=== PATIENT | female | born 1975 | race Caucasian/White ===

== ENCOUNTER → 2018-08-18 | Outpatient (CLI) | payer OTHER ==
[~2018-08-18] VITALS: Ht 152.4 cm; Wt 92.5 kg
[~2018-08-18] MED LIST: AMBIEN 5 MG TABL5 M1 PO; CRESTOR10 MG PO; METOPROLOL TART25 MG PO; MOBIC15 MG PO; NEURONTIN 300300 M1 PO; PROTONIX40 M1 PO; REQUIP 1 MG TABL1 M1 PO; SYNTHROID150 MCG PO
--- NOTE | ~2018-08-18 | HPC ---
[facility] [address] [place] [address] PAIN MANAGEMENT CONSULTATION Name: STEFANO JULIEN [id number] Admission: 08/18/18 Attend Phys: Henry Lea DO Discharge: Date of : 71 Report #: [id number] THIS REPORT FOR: //name// CC: Henry Burroughs DATE OF SERVICE: 08/18/2018 CHIEF COMPLAINT: Low back pain, left buttock pain, bilateral calf and anterior thigh pain. HISTORY OF PRESENT ILLNESS: As you know, the patient is a 43-year-old morbidly obese female who reports pain that began in 2017. She denies injury or trauma that may have led to symptom development. She indicates pain begins in the low back, left buttock area, then skips entire leg until the anterior tibial area and the gastrocnemius area bilaterally in a stocking distribution presenting as paresthesias. The patient states that this has been present for years. Apparently pain became intolerable to the point where the patient sought further evaluation with her PCP. Primary care has run some labs, which show no specific concerning findings that might indicate rheumatologic issues. She has trialled conservative medical therapy receiving treatment via the primary care team without improvement. She was subsequently referred to our service requesting the possibility of undergoing an epidural injection for suspected lumbar radiculopathy. The patient indicates pain today is continuous and constant, describes the pain as burning, aching, throbbing and stabbing, places current pain score 4/10, daily average at 8/10, worst pain has been is 10/10. The patient states the pain is exacerbated with "sitting." The patient indicates pain is improved with nothing to date except for possibly hot baths, lying down, ibuprofen therapy, which might make it more tolerable. She has been referred to our service to discuss treatment options. It is noted the patient's labs are only positive for TSH elevated, which is typical for hypothyroidism. The patient's cholesterol is elevated, BUN mildly elevated and CRP elevated to 1.1 with a normal of 0.9. PAST MEDICAL HISTORY: 1. Hypothyroidism. 2. GERD. 3. Bilateral restless legs syndrome. 4. Hypertension. PAST SURGICAL HISTORY: 1. Cholecystectomy. 2. Partial hysterectomy. [facility] [address] [place] [address] PAIN MANAGEMENT CONSULTATION Name: STEFANO JULIEN Room #: REG [facility].#: [id number] Admission: 08/18/18 Attend Phys: Henry Lea DO Discharge: Date of : 71 Report #: [id number] SOCIAL HISTORY: The patient denies tobacco, IV or illicit drug use. Admits to two alcoholic beverages per week. She is currently employed as a registered nurse. She is working, not receiving workmen's compensation nor is she trying to obtain disability benefits. She is not in litigation in regards to pain. She is unaccompanied at today's visit. REVIEW OF SYSTEMS: Positive for weight gain, night sweats, fatigue and weakness, frequent and recurrent headaches, wearing corrective eyewear, chronic sinus problems with rhinitis, nose bleeds, shortness of breath walking or lying flat, heart trouble, chest pain, palpitations, nocturia, rash and itching, numbness and tingling sensations bilaterally in the lower extremities, insomnia and thyroid disease. All other review of systems negative per 12-point review of systems other than those listed in the history of present illness. Pain impact score 35/70 indicating moderate interference of daily activities secondary to pain. ALLERGIES: SULFA. CURRENT MEDICATIONS: Meloxicam 15 mg once a day, zolpidem 5 mg p.o. at bedtime, lovastatin 10 mg once a day, metoprolol 25 mg every 12 hours, Requip 1 mg p.o. at bedtime, Protonix 40 mg per day and levothyroxine 150 mcg per day. IMAGING: MRI of lumbar spine obtained on 07/16/2018 shows L1-L2, L2-L3 and L3-L4 are unremarkable. L4-L5 shows grade 1 anterolisthesis of L4 on L5, mild to moderate degenerative changes typical for an anterolisthesis. There is moderate facet arthropathy on the right, mild arthropathy on left, mild broad-based disk bulge with moderate right paracentral disk bulge, no spinal stenosis, moderate narrowing of the left lateral recess and mild narrowing of the ____ lateral recess. There is mild right L4 neural foraminal narrowing without nerve root compression. L5-S1 mild degenerative changes, mild central disk protrusion, no central canal neural foraminal stenosis. PHYSICAL EXAMINATION: VITAL SIGNS: Blood pressure 152/93, pulse is 80, respiratory rate 16 and unlabored, the patient is 97% on room air. Height 5 feet tall, weight 204 pounds, BMI calculated 39.8. GENERAL: Well-developed, well-nourished, well-hydrated, morbidly obese 43-year-old female appearing stated age, placing pain score today 4/10. HEENT: Normocephalic and atraumatic. Pupils are equal, round and reactive to light. Extraocular muscles are intact. Sclerae are nonicteric without injection. NEUROLOGIC: Cranial nerves 2-12 are grossly intact. Speech is fluent. The patient deemed a good historian. LUNGS: Clear, no wheeze, rhonchi or rales. CARDIOVASCULAR: Regular. No appreciable gallop or rub. ABDOMEN: Soft, nontender and obese. Normoactive bowel sounds. [facility] [address] [place] [address] PAIN MANAGEMENT CONSULTATION Name: STEFANO JULIEN Room #: REG [facility].#: [id number] Admission: 08/18/18 Attend Phys: Henry Lea DO Discharge: Date of : 71 Report #: [id number] EXTREMITIES: Show no clubbing, no cyanosis and no edema. MUSCULOSKELETAL: Lower extremity strength appears equal and symmetrical 5/5. She is intact to light touch from L1 through S2 dermatomes. Seated straight leg raising is negative. Supine straight leg raising is negative. Armaan's test is negative. Modified Gaenslen's positive for axial low back pain. Ankle clonus is negative. Babinski is negative. Gait appears normal. Stance is normal. ASSESSMENT: 1. Chronic low back pain. 2. 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 3. Bilateral lower extremity neuropathic pain. 4. Chronic intractable pain. PLAN: 1. The patient has been referred to our service for evaluation for suspected lumbar radiculopathy. I am pleased to advise the patient today, no radicular symptoms are noted. The findings of her MRI if these were causing symptoms would be related specifically to the right side and no left side involvement. In fact pain distribution that the patient is experiencing appears to be more related to facet arthropathy and possibly a little SI joint dysfunction both of which I recommend to treat conservatively. The symptoms the patient is experiencing in the bilateral lower extremities appear to be a peripheral neuropathy. The distribution of the symptoms are in a stocking distribution and are nondermatomal. They involve both the anterior and posterior lower extremity and noted bilaterally. I believe further evaluation from either vascular studies or an EMG would be appropriate in this case. The findings of physical exam would indicate more of a facet arthropathy and SI joint discomfort involving the left buttock area and recommend treatment as indicated above is more conservative. Certainly treatment can be addressed for the bilateral lower extremity symptoms treating neuropathy with a neuropathic pain medication. Again, I am pleased to indicate to the patient today that the findings of her MRI do not appear to be related to the patient's distribution of pain. 2. I would recommend initiating gabapentin therapy in this patient's case. This will help her peripheral neuropathy that needs to be further worked up. We will start the patient on a 300 mg dose starting at 1 tab p.o. bedtime for 3 days, then 2 tabs p.o. at bedtime for 3 days, then 1 tab in the morning and 2 tabs at night for 3 days, then 2 tabs in the morning and 2 tabs at night for 3 days, then 2 tabs in the morning, 1 tab at noon and 2 tabs at night for 3 days, ultimately reaching 2 tabs p.o. b.i.d. The patient was advised anytime during this titration, she notes improvement in symptoms, no further escalation would be necessary. If side effects are reached including somnolence, decreased mental acuity, disorientation and confusion, she can reduce to the dose prior, contact our clinic for adjustments in her titration option. She was given a prescription of #180 tablets, no refills. 3. In regards to the patient's axial back pain and left buttock pain, this appears to be related to facet arthropathy noted at the L4-L5 and to a lesser [facility] [address] [place] [address] PAIN MANAGEMENT CONSULTATION Name: STEFANO JULIEN Room #: REG Brandan Shipley#: [id number] Admission: 08/18/18 Attend Phys: Henry Lea DO Discharge: Date of : 71 Report #: [id number] degree at the L5-S1 level. We could certainly look towards injections into this area. Other treatments would be physical therapy, stretching exercise, core strengthening and a concerted effort at weight loss, which will assist the patient's generalized pain disorder. We also discussed utilization of a nonsteroidal anti-inflammatory on a consistent basis. We also discussed intra-articular facet injections as indicated above and medial branch nerve blocks leading towards radiofrequency lesioning. These all can be considered. The patient at this time wishes to consider these options further. 4. I recommend strongly that the patient return to her PCP, have adjustments made for her thyroid issues. Apparently, she is having difficulty with thyroid control. She does note worsening of her bilateral lower extremity peripheral neuropathies with changes in her thyroid treatment. This would indicate the thyroid symptomology may be the source of her bilateral nondermatomal pain distribution. I will defer to the primary team for further evaluation and possible referrals to either Neurology for EMG testing of the lower extremities or possibly even further testing with vascular studies to confirm no peripheral vascular issues. 5. We spent 24 minutes of time today reviewing the patient's MRI imaging and trying to correlate the imaging findings to the patient's distribution. I am pleased to indicate at this time the findings that are present would be more indicative of affecting the right side with no left side involvement. This is the opposite side of the patient's pain and thus indicating that the findings of the MRI are not consistent with pain distribution and do not appear to be contributing to the patient's symptomology except for the facet arthropathy pain on the left side, which may be contributing to her left buttock and posterior buttock distribution. After this long discussion, we discussed the treatment options as indicated above, the patient wished to consider those options further. 6. We wish to thank Dr. Burroughs for the referral of the patient to our clinic. We will keep you apprised of response to treatment as we address her ongoing pain issues. Once we have stabilized her on a dose of appropriate medication, we will be returning her care to your capable services to continue that treatment course. Again we wish to thank you for the opportunity to see the patient in consultation. By: [phone] Henry Lea DO /fahad
[2018-08-18 14:21] VITALS: BP 152/93
--- NOTE | 2018-08-18 14:23 | NUR ---
Pain Clinic Assessment: 1. History of Osteoarthritis: Not Applicable History of Rheumatoid Arthritis: Not Applicable 2. Height: 5 ft. 0 in. 152.4 cm. Weight: 204.0 lb. oz. 92.534 kg. Patient's BMI: 39.8 3. Vital Signs: BP: 152/93 Pulse: 80 Resp: 16 Temp: 02 Sat: 97 ECG Mon: 4. Pain Intensity: 4 5. Fall Risk: Dizziness: N Needs help standing or walking: N Fallen in the last 3 months: N Fall risk comments: 6. Patient on Blood Thinner: None 7. History of Hypertension: Y 8. Opioid Therapy greater than 6 weeks: N Opiate Contract Signed: 9. Risk Assessment Tool Provided: 10. Functional Assessment Tool: 11. Recreational Drug Use: Never Drug Type: Tobacco Use: Never Smoker Tobacco Type: Amount or Packs/day: How Many Years: Alcohol Use: Yes Frequency: Weekly Quant: 1-2
== END ==
LOC: PAIN 06:57
DX: M54.5 Low back pain (principal); M79.605 Pain in left leg; M79.604 Pain in right leg; G89.29 Other chronic pain; F17.200 Nicotine dependence, unspecified, uncomplicated; Z72.89 Other problems related to lifestyle; Z79.899 Other long term (current) drug therapy

== ENCOUNTER → 2019-08-10 | Outpatient (CLI) | payer OTHER ==
[~2019-08-10] VITALS: Ht 152.4 cm; Wt 95.1 kg
[~2019-08-10] MED LIST changes: +CYMBALTA60 MG PO; +NEURONTIN300 MG PO; +ZANAFLEX4 M2 PO
[2019-08-10 10:21] VITALS: BP 141/93
--- NOTE | 2019-08-10 10:35 | NUR ---
Pain Clinic Assessment: 1. History of Osteoarthritis: DENIES History of Rheumatoid Arthritis: DENIES 2. Height: 5 ft. 0 in. 152.4 cm. Weight: 209.6 lb. oz. 95.074 kg. Patient's BMI: 40.9 3. Vital Signs: BP: 141/93 Pulse: 81 Resp: 16 Temp: 02 Sat: 99 ECG Mon: 4. Pain Intensity: 4 5. Fall Risk: Dizziness: N Needs help standing or walking: N Fallen in the last 3 months: N Fall risk comments: 6. Patient on Blood Thinner: None 7. History of Hypertension: Y 8. Opioid Therapy greater than 6 weeks: N Opiate Contract Signed: 9. Risk Assessment Tool Provided: 10. Functional Assessment Tool: 11. Recreational Drug Use: Never Drug Type: Tobacco Use: Never Smoker Tobacco Type: Amount or Packs/day: How Many Years: Alcohol Use: Yes Frequency: Special Occasions Quant:
--- NOTE | 2019-08-11 12:54 | HPC ---
[facility] [place] [address] [place] [address] PAIN MANAGEMENT CONSULTATION Name: STEFANO JULIEN [facility] [id number] Admission: 08/10/19 Attend Phys: Sophie Lea DO Discharge: Date of : 71 Report #: [id number] THIS REPORT FOR: //name// CC: SOPHIE Verdugo DATE OF SERVICE: 08/10/2019 REFERRING PHYSICIAN: Sophie Burroughs DO CHIEF COMPLAINT: Low back pain, bilateral lower extremity pain, left greater than right. HISTORY OF PRESENT ILLNESS: As you know, the patient is a 44-year-old female who was seen by our services on 08/18/2018, diagnosed with lumbar radiculopathy at that time, but chose to follow on more conservative treatment course. She has been lost to followup visit until today where she returns describing her pain is chronic in nature, burning, aching, numbness and tingling that is what she experiences on a daily basis, placing her current pain score 4/10. Pain is exacerbated with walking, standing, driving and sitting, improves with hot baths and lying down. The patient states she has sought evaluation through Neurosurgery, who has advised the patient that surgical options will likely be necessary at the L4-L5 level. She was referred back to our clinic by the neurosurgery team to trial an epidural injection under fluoroscopic guidance to determine if her symptoms would be amenable to a more conservative treatment approach. She returns today in followup visit stating pain level of around 4/10. She denies new injury or trauma that may have led to symptom reoccurrence. She does come to us today with imaging that was obtained on 06/24/2019, which showed changes at the L4-L5 level consistent with her symptoms. ALLERGIES: SULFA. CURRENT MEDICATIONS: Tizanidine, duloxetine, gabapentin, zolpidem, lovastatin, metoprolol, pantoprazole, levothyroxine. SOCIAL HISTORY: The patient denies tobacco, IV or illicit drug use. Admits to 2 alcohol beverages per week. She is employed as a registered nurse, working, not receiving workmen's compensation, unaccompanied today. IMAGING: MRI lumbar spine obtained on 06/24/2019 shows T12-L1, L1-L2, L2-L3, and L3-L4 shows no significant findings. L4-L5 shows uncovering of the posterior superior aspect of the disk with broad-based posterior disk bulge, again noted asymmetric prominence and superimposed shallow disk protrusion within the right subarticular zone extending the [place] [address] PAIN MANAGEMENT CONSULTATION Name: STEFANO JULIEN [facility] #: [facility] [id number] Admission: 08/10/19 Attend Phys: Sophie Lea DO Discharge: Date of : 71 Report #: [id number] Effacement of the exiting right L4 nerve root. There is moderate to severe medial right foraminal stenosis, mildly progressed from previous examination. Severe right and moderate left facet arthropathy. L5-S1 is essentially unremarkable. PHYSICAL EXAMINATION: VITAL SIGNS: Blood pressure 141/93, pulse 81, respiratory rate 16 and unlabored, the patient is 99% on room air. Height 5 feet tall, weight 209.6 pounds, BMI calculated 40.9. GENERAL: Well-developed, well-nourished, well-hydrated, class 3, morbidly obese 44-year-old female, appearing stated age, pain is rated today 4/10. HEENT: Normocephalic, atraumatic. Pupils equal, round, reactive to light. Extraocular muscles are intact. EXTREMITIES: Show no clubbing, no cyanosis, and no edema. MUSCULOSKELETAL: Lower extremity strength appears equal and symmetrical 5/5, intact to light touch from L1 through S2 dermatomes. Seated straight leg raising is negative. Supine straight leg raising is positive right. Armaan's test is negative. Modified Gaenslen's positive for axial low back pain. Ankle clonus is negative. Babinski is negative. ASSESSMENT: 1. Symptomatic lumbar radiculopathy. 2. Displacement of lumbar intervertebral disk with radiculopathy. 3. Lumbosacral spondylosis with radiculopathy. 4. Right foraminal stenosis. 5. Lumbar degeneration. 6. Chronic intractable pain. PLAN: 1. The patient has returned today in followup visit per the request of her neurosurgery team to undergo lumbar epidural injection under fluoroscopic guidance. The patient brings with her today imaging study from 06/24/2019 that reviewed with her today. I am pleased that the findings of the MRI are such that she only has one level issue and can be amenable to surgery, but we are hopeful she can see improvement in symptoms with an epidural injection for which the patient was referred to our clinic. We discussed the risks and benefits of a lumbar epidural injection. These risks include but are not necessarily limited to bleeding, bruising, infection, worsening pain, no relief of pain, also risk of temporary or permanent muscle weakness, temporary or permanent nerve damage, possible paralysis, post-dural puncture headache and . The patient states understood and wished to proceed. 2. No medication changes made at today's visit. The patient will continue current medical therapy as prior prescribed. 3. We will see the patient back in followup visit on an as needed basis for the possible next in the series of lumbar epidural injections. [facility] [address] [place] [address] PAIN MANAGEMENT CONSULTATION Name: STEFANO JULIEN Room #: REG [facility]#: [id number] Admission: 08/10/19 Attend Phys: Sophie Lea DO Discharge: Date of : 71 Report #: [id number] PROCEDURE NOTE DESCRIPTION OF PROCEDURE: L5-S1 right parasagittal epidural steroid injection under fluoroscopic guidance. This is the first procedure of the first series that the patient is undergoing. After obtaining written consent, the patient was taken back to the fluoroscopy suite, placed in a prone position with pillow under the abdomen to decrease lumbar lordosis. The skin overlying the lumbosacral area was then prepped and draped in aseptic fashion. The L5-S1 vertebral interspace was then identified by AP fluoroscopy. The skin and subcutaneous tissue overlying the target site of injection was anesthetized with 3 mL 1% lidocaine. A 20-gauge 4.5 inch Tuohy needle was then advanced under fluoroscopic guidance towards the epidural space using a right parasagittal approach. The epidural space was identified using loss of resistance to air technique. After negative aspiration for heme or cerebrospinal fluid, a total of 1 mL of Omnipaque was injected. A lumbar epidurogram was confirmed using both AP and lateral fluoroscopy. After negative aspiration for heme or cerebrospinal fluid, 5 mL of a solution containing 2 mL 40 mg/mL 80 mg total triamcinolone along with 3 mL of lidocaine 1% was injected in increments. Contrast spread was noted post epidural space. The needle was then retracted approximately half way and needle tract flushed with 1 mL of 1% lidocaine. Needle was then removed. There were no apparent sensory or motor deficits in the lower extremity following the procedure. A sterile bandage was placed over the injection site. The heart rate, pulse, oximetry and blood pressure were continuously monitored after the procedure. There were no apparent complications. The patient tolerated the procedure well and was carefully escorted to the recovery room in stable condition. There were no apparent complications. After meeting discharge criteria, the patient was then discharged home. <ELECTRONICALLY SIGNED> By: Sophie Lea DO 08/11/19 [id number] Sophie Lea DO /nt
== END | disposition home or self-care (01) ==
LOC: PAIN 06:54
DX: M51.16 Intervertebral disc disorders with radiculopathy, lumbar region (principal); M47.27 Other spondylosis with radiculopathy, lumbosacral region; M99.73 Connective tissue and disc stenosis of intervertebral foramina of lumbar region; G89.29 Other chronic pain; E66.01 Morbid (severe) obesity due to excess calories; Z88.2 Allergy status to sulfonamides; Z79.899 Other long term (current) drug therapy; Z98.890 Other specified postprocedural states; Z68.41 Body mass index [BMI] 40.0-44.9, adult

== ENCOUNTER → 2019-11-24 | Outpatient (CLI) | payer OTHER ==
[~2019-11-24] VITALS: Ht 152.4 cm; Wt 96.0 kg
--- NOTE | ~2019-11-24 | HPC ---
[facility] [address] [place] [address] PAIN MANAGEMENT CONSULTATION Name: STEFANO JULIEN Room #: REG CASSANDRA Stewart.#: [id number] Admission: 11/24/19 Attend Phys: Henry Lea DO Discharge: Date of : 71 Report #: [id number] THIS REPORT FOR: cc: Henry Burroughs James L. DO Johnson, James E. DO ~ CC: Henry Burroughs MD DATE OF SERVICE: 11/24/2019 CHIEF COMPLAINT: Low back pain, bilateral lower extremity pain with paresthesias, left greater than right. HISTORY OF PRESENT ILLNESS: As you know, the patient is a very pleasant 44-year-old female who has returned today in followup visit to undergo next in the series of lumbar epidural injections. She reports with previous epidural injection 75% improvement in overall pain, lasted about 3 months. She has had a slow and progressive return of symptoms over the past 2 weeks that she notes has difficulty with lying down and ambulating any long distances or sitting for any length of time. She describes the pain as burning, aching, numbness and tingling. Places current pain score 4/10. She returns today to undergo next in the series of epidural injections in hopes of building on success of previous intervention. The patient denies injury or trauma that has led to recurrence of pain. ALLERGIES: SULFA. CURRENT MEDICATIONS: Levothyroxine, pantoprazole, metoprolol, rosuvastatin, zolpidem, duloxetine, tizanidine. SOCIAL HISTORY: The patient denies tobacco, IV or illicit drug use. Admits to approximately 2 alcohol beverages per week. She is employed as a registered nurse, working, not receiving workmen's compensation, unaccompanied today. IMAGING: No new imaging available. PHYSICAL EXAMINATION: VITAL SIGNS: Blood pressure 139/79, pulse 85, respiratory rate 14 and unlabored. The patient is 99% on room air. Height 5 feet tall, weight 211.6 pounds, BMI calculated 41.3. GENERAL: Well-developed, well-nourished, well-hydrated, class 3, morbidly obese 44-year-old female, appearing stated age, pain is rated today 4/10. HEENT: Normocephalic, atraumatic. Pupils equal, round, reactive. EXTREMITIES: Show no clubbing, no cyanosis, and no edema. [facility] [address] [place] [address] PAIN MANAGEMENT CONSULTATION Name: STEFANO JULIEN Room #: REG CASSANDRA Jordan#: [id number] Admission: 11/24/19 Attend Phys: Henry Lea DO Discharge: Date of : 71 Report #: [id number] MUSCULOSKELETAL: Strength appears normal again today 12/06. She remains intact to light touch from L1 through S2 dermatomes. Muscle bulk and tone is equal and symmetrical when comparing left lower extremity to right. Seated straight leg raising negative. Supine straight leg raising remains positive on the right. ASSESSMENT: 1. Symptomatic lumbar radiculopathy. 2. Displacement of lumbar intervertebral disk with radiculopathy. 3. Lumbosacral spondylosis with radiculopathy. 4. Right lumbar foraminal stenosis. 5. Lumbar degeneration. 6. Chronic intractable pain. PLAN: 1. The patient returns today in followup visit having noted excellent benefit with previous epidural injection, 75% improvement in overall pain lasting for nearly 3 months. Unfortunately, the patient has begun to have recurrence of symptoms. She is now placing pain score at around 4/10. She returns today in followup visit for the next in the series of epidural injections to address recurrent lumbar radicular symptoms. Again, the patient reports no injury or trauma. The patient has been advised risks and benefits of this procedure. These risks include but are not necessarily limited to bleeding, bruising, infection, worsening pain, no relief of pain, also risk of temporary or permanent muscle weakness, temporary or permanent nerve damage, possible paralysis, post-dural puncture headache and . The patient states understood and wished to proceed. The patient has been advised of the risks that she may experience with epidural injections during COVID virus pandemic. The patient was advised that steroids have a tendency to reduce once capability to mount an immune response and this could lead to a possibility of greater risk of julio c COVID virus. It is also noted that steroids have a tendency to exacerbate symptoms of COVID virus. The patient was advised of this today. The patient states she understood and despite these risks, she wishes to continue. 2. No medication changes made at today's visit. The patient will continue current medical therapy as previously prescribed. 3 We will see the patient back in followup visit on an as needed basis for the possible next in the series of epidural injections under fluoroscopic guidance. DESCRIPTION OF PROCEDURE: L5-S1 right parasagittal epidural steroid injection under fluoroscopic guidance. This is the second procedure of the first series that the patient is undergoing. [facility] [address] [place] [address] PAIN MANAGEMENT CONSULTATION Name: STEFANO JULIEN Room #: REG CASSANDRA Shipley#: [id number] Admission: 11/24/19 Attend Phys: Henry Lea DO Discharge: Date of : 71 Report #: [id number] After obtaining written consent, the patient was taken back to the fluoroscopy suite, placed in a prone position with pillow under the abdomen to decrease lumbar lordosis. The skin overlying the lumbosacral area was then prepped and draped in aseptic fashion. The L5-S1 vertebral interspace was then identified by AP fluoroscopy. The skin and subcutaneous tissue overlying the target site of injection was anesthetized with 3 mL 1% lidocaine. A 20-gauge 4.5 inch Tuohy needle was then advanced under fluoroscopic guidance towards the epidural space using right parasagittal approach. The epidural space was identified using loss of resistance to air technique. After negative aspiration for heme or cerebrospinal fluid, a total of 1 mL of Omnipaque was injected. A lumbar epidurogram was confirmed using both AP and lateral fluoroscopy. After negative aspiration for heme or cerebrospinal fluid, 5 mL of a solution containing 2 mL 40 mg/80 mg total triamcinolone along with 3 mL of lidocaine 1% was injected in increments. Contrast spread was noted in post epidural space. The needle was then retracted approximately half way and needle tract flushed with 1 mL of 1% lidocaine. Needle was then removed. There were no apparent sensory or motor deficits in the lower extremity following the procedure. A sterile bandage was placed over the injection site. The heart rate, pulse, oximetry and blood pressure were continuously monitored after the procedure. There were no apparent complications. The patient tolerated the procedure well and was carefully escorted to the recovery room in stable condition. There were no apparent complications. After meeting discharge criteria, the patient was then discharged home. By: [id number] Henry Lea DO /fahad
[2019-11-24 13:26] VITALS: BP 139/79
--- NOTE | 2019-11-24 13:37 | NUR ---
Pain Clinic Assessment: 1. History of Osteoarthritis: DENIES History of Rheumatoid Arthritis: DENIES 2. Height: 5 ft. 0 in. 152.4 cm. Weight: 211.6 lb. oz. 95.981 kg. Patient's BMI: 41.3 3. Vital Signs: BP: 139/79 Pulse: 85 Resp: 14 Temp: 02 Sat: 99 ECG Mon: 4. Pain Intensity: 4 5. Fall Risk: Dizziness: N Needs help standing or walking: N Fallen in the last 3 months: N Fall risk comments: 6. Patient on Blood Thinner: None 7. History of Hypertension: Y 8. Opioid Therapy greater than 6 weeks: N Opiate Contract Signed: 9. Risk Assessment Tool Provided: 10. Functional Assessment Tool: 11. Recreational Drug Use: Never Drug Type: Tobacco Use: Never Smoker Tobacco Type: Amount or Packs/day: How Many Years: Alcohol Use: Yes Frequency: Quant:
== END | disposition home or self-care (01) ==
LOC: PAIN 09-14 06:50
DX: M51.16 Intervertebral disc disorders with radiculopathy, lumbar region (principal); M48.061 Spinal stenosis, lumbar region without neurogenic claudication; G89.29 Other chronic pain; M47.27 Other spondylosis with radiculopathy, lumbosacral region; Z98.890 Other specified postprocedural states; Z79.899 Other long term (current) drug therapy; Z88.2 Allergy status to sulfonamides

== ENCOUNTER → 2020-03-22 | Outpatient (CLI) | payer OTHER ==
[~2020-03-22] VITALS: Ht 152.4 cm; Wt 106.0 kg
[~2020-03-22] MED LIST changes: +TRAMADOL 50 MG50 MG PO
[2020-03-22 12:42] VITALS: BP 142/86
--- NOTE | 2020-03-22 12:56 | NUR ---
Pain Clinic Assessment: 1. History of Osteoarthritis: DENIES History of Rheumatoid Arthritis: DENIES 2. Height: 5 ft. 0 in. 152.4 cm. Weight: 233.6 lb. oz. 105.960 kg. Patient's BMI: 45.6 3. Vital Signs: BP: 142/86 Pulse: 70 Resp: 16 Temp: 02 Sat: 97 ECG Mon: 4. Pain Intensity: 7-8 5. Fall Risk: Dizziness: N Needs help standing or walking: N Fallen in the last 3 months: N Fall risk comments: 6. Patient on Blood Thinner: None 7. History of Hypertension: Y 8. Opioid Therapy greater than 6 weeks: N Opiate Contract Signed: 9. Risk Assessment Tool Provided: 10. Functional Assessment Tool: 11. Recreational Drug Use: Never Drug Type: Tobacco Use: Never Smoker Tobacco Type: Amount or Packs/day: How Many Years: Alcohol Use: Yes Frequency: Quant:
--- NOTE | 2020-03-28 08:30 | HPC ---
[facility] [address] [place] [address] PAIN MANAGEMENT CONSULTATION Name: STEFANO JULIEN Room #: REG CASSANDRA Stewart.#: [id number] Admission: 03/22/20 Attend Phys: Henry Lea DO Discharge: Date of : 71 Report #: [id number] THIS REPORT FOR: cc: Henry Burroughs James L. DO Johnson, James E. DO ~ DATE OF SERVICE: 03/22/2020 REFERRING PHYSICIAN: Henry Burroughs DO CHIEF COMPLAINT: Low back pain, bilateral lower extremity pain and paresthesias. HISTORY OF PRESENT ILLNESS: As you know, the patient is a very pleasant 45-year-old female who has longstanding history of lumbar radiculopathy involving the low back and bilateral lower extremities with radiation all the way into the feet. She reports the pain as chronic in nature. She describes the pain as burning, aching, numbness, tingling and fatiguing. She states pain is exacerbated with walking, standing, driving, sitting and certain activities, improves with hot baths, heating cold compresses and the previous epidural injection. The patient reports the epidural injection provided at last visit gave 80% improvement in overall pain lasting for nearly 6 weeks. She returns today in followup visit with recurrent pain now placing pain score at 8/10. The patient indicates no new injury or trauma that may have led to symptom reoccurrence. She returns today in followup visit to undergo next in the series of lumbar epidural injections in hopes of improving pain. ALLERGIES: SULFA. CURRENT MEDICATIONS: Levothyroxine, pantoprazole, metoprolol, rosuvastatin, zolpidem, duloxetine, tizanidine. SOCIAL HISTORY: The patient denies tobacco, IV or illicit drug use. Admits to 2 alcohol beverages per week. She is employed as a registered nurse, working, not receiving workmen's compensation, unaccompanied today. IMAGING: No new imaging available. PHYSICAL EXAMINATION: VITAL SIGNS: Blood pressure 142/86, pulse is 70, respiratory rate 16 and unlabored. The patient is 97% on room air. Height 5 feet tall, weight 233.6 pounds and BMI calculated 45.6. GENERAL: Well-developed, well-nourished, well-hydrated, class 3, morbidly obese 45-year-old female appearing stated age, pain is rated today at 7-8/10. HEENT: Normocephalic, atraumatic. Pupils equal, round and reactive. [facility] [address] [place] [address] PAIN MANAGEMENT CONSULTATION Name: STEFANO JULIEN [facility] [id number] Admission: 03/22/20 Attend Phys: Henry Lea DO Discharge: Date of : 71 Report #: [id number] NEUROLOGIC: Speech is fluent. The patient is wearing a mask in compliance with COVID-19 restrictions. EXTREMITIES: Show no clubbing, no cyanosis, and no edema. MUSCULOSKELETAL: Lower extremity strength is symmetrical again today 5/5. Muscle bulk and tone is equal and symmetrical in comparing left lower extremity to right. Straight leg raising is negative in the seated position and positive in the supine position on the right. No findings on the left. Ankle clonus negative. Babinski is negative. ASSESSMENT: 1. Symptomatic lumbar radiculopathy. 2. Displacement of lumbar intervertebral disk with radiculopathy. 3. Lumbosacral spondylosis with radiculopathy. 4. Severe right foraminal stenosis. 5. Lumbar degeneration. 6. Chronic intractable pain. PLAN: 1. The patient returns today in followup visit with recurrence of lumbar radicular symptoms without inciting injury or trauma. She is placing current pain score 7-8/10. She is very pleased with response to the initial injection receiving 80% improvement in overall pain lasting for nearly 6 weeks. Unfortunately, her symptoms have begun to return. She returns today for the next in the series of epidural injections. The patient has been advised risks and benefits of the lumbar epidural injection, states understood and wished to proceed. 2. No medication changes made at today's visit. The patient will continue current medical therapy as previously prescribed. 3. We will see the patient back in followup visit on an as needed basis for possible next in the series of epidural injections. The patient was advised this is the third in the series of epidural injections in this year. She has 2 remaining epidural injections over the next couple of months. PROCEDURE NOTE DESCRIPTION OF PROCEDURE: L5-S1 right parasagittal epidural steroid injection under fluoroscopic guidance. After obtaining written consent, the patient was taken back to fluoroscopy suite, placed in prone position with pillow under abdomen to decrease lumbar lordosis. Skin overlying lumbosacral area prepped and draped in aseptic fashion. The L5-S1 vertebral interspace identified by AP fluoroscopy. Skin and subcutaneous tissue overlying target site of injection anesthetized with 3 mL of 1% lidocaine. A 20-gauge 4-1/2 inch Tuohy needle advanced under fluoroscopic guidance towards [address] [address] PAIN MANAGEMENT CONSULTATION Name: STEFANO JULIEN Room #: REG CASSANDRA Shipley#: [id number] Admission: 03/22/20 Attend Phys: Henry Lea DO Discharge: Date of : 71 Report #: [id number] the epidural space using a right parasagittal approach. Epidural space identified using loss of resistance to air technique. Due to a reported ALLERGY TO SHELLFISH no contrast agent was used in today's procedure. After negative aspiration for heme or cerebrospinal fluid, 5 mL of a solution containing 2 mL 40 mg per mL, 80 mg total triamcinolone along with 3 mL of lidocaine 1% injected slowly. Needle then retracted residential, flushed with 1 mL of 1% lidocaine and then removed. Sterile bandage placed over injection site. No new motor deficits present in the lower extremities following procedure. The patient tolerated procedure well, carefully escorted to recovery room in stable condition. No apparent complications. After meeting discharge criteria, the patient discharged home. <ELECTRONICALLY SIGNED> By: Henry Lea DO 03/28/20 0830 [id number] Henry Lea DO /nt
== END | disposition home or self-care (01) ==
LOC: PAIN 06:53
PROVIDERS: ATTEND Anesthesiology Pain Medicine
DX: M51.16 Intervertebral disc disorders with radiculopathy, lumbar region (principal); M47.27 Other spondylosis with radiculopathy, lumbosacral region; M48.061 Spinal stenosis, lumbar region without neurogenic claudication; G89.29 Other chronic pain; Z98.890 Other specified postprocedural states; Z79.899 Other long term (current) drug therapy; Z88.2 Allergy status to sulfonamides